=== PATIENT | female | born 1955 ===

== ENCOUNTER 2018-06-14 06:28 | Day surgery (SDC) | payer MEDICARE ==
--- NOTE | 2018-06-14 07:50 | CP.SDSHP ---
Same Day Surgery H & P - History Proposed Procedure: COLONSCOPY Pre-Op Diagnosis: SEE NOTES - Previous Medical/Surgical History Cardiac: Hypertension Endocrine/Metabolic: Other Misc: Other Pain: 4.Moderate Pain - Allergies Allergies: Allergies No Known Allergies Allergy (Verified 06/13/18 10:50) - Physical Exam General Appearance: N Vital Signs: Vital Signs 06/14/18 06:45 Temperature 98.2 F Pulse Rate 79 Respiratory 19 Rate Blood Pressure 146/92 H O2 Sat by Pulse 99 Oximetry Mental Status: Alert & Oriented x3 Neuro: WNL Heart: Other Lungs: WNL GI: Other - {Optional Preform as Required} Breast: WNL Abdomen: Other Rectal: Other Integument: WNL : WNL Ortho: WNL ENT: Other - Impression Pt. Evaluated Today:Candidate for Anesthesia & Procedure: Yes - Date & Time Time: 07:49 Short Stay Discharge - Short Stay Discharge Admitting Diagnosis/Reason for Visit: SCREENING Disposition: HOME/ ROUTINE
[2018-06-14] MEDS ORDERED: Lactated Ringer's 1,000 ML IV ONE (07:53)
[2018-06-14] MEDS ORDERED: Propofol 10 mg/ml Inj (20 ML) ONE (07:57)
[2018-06-14] MEDS ORDERED: Lidocaine Hydrochloride 5 ML INJ ONE (08:16)
[2018-06-14] MEDS ORDERED: Belladonna-Phenobarbital PO ONE (08:25)
[2018-06-14 09:36] VITALS: TEMP 98
[2018-06-14 09:38] VITALS: PULSE 68
[2018-06-14 09:40] VITALS: BP 119/70; RESP 18; O2SAT 99
== END 2018-06-14 09:30 | disposition home or self-care (01) ==
LOC: C.ENDO 06:28
PROVIDERS: ATTEND Specialist
DX: K57.30 Diverticulosis of large intestine without perforation or abscess without bleeding (principal); Z12.11 Encounter for screening for malignant neoplasm of colon; K64.8 Other hemorrhoids; I10 Essential (primary) hypertension
CPT/HCPCS: 45378; 88305; J2704; J7120

== ENCOUNTER 2018-07-07 09:07 | Outpatient (CLI) | payer MEDICARE | END 2018-07-07 09:08 | disposition home or self-care (01) | LOC: C.PAT 09:07 | DX: N20.0 Calculus of kidney (principal) ==

== ENCOUNTER 2018-07-11 11:03 | Day surgery (SDC) | payer MEDICARE ==
[2018-07-07 09:22] VITALS: BMI 23.0
[2018-07-11] MEDS ORDERED: Ciprofloxacin 400mg/200ml D5W 400 MG/200 ML BAG IVPB ONE ×2 (11:58→12:02)
[2018-07-11] MEDS ORDERED: Lidocaine 2% Jelly (Uro-Jet) ONE (11:58)
[2018-07-11] MEDS ORDERED: Iohexol 240 (50 ml) ONE (11:59)
[2018-07-11] MEDS ORDERED: Gentamicin 80 mg in 0.9% NS 160 MG/200 ML BAG IVPB ONE (12:02)
[2018-07-11] MEDS ORDERED: Propofol 10 mg/ml Inj (20 ML) ONE (12:11)
[2018-07-11] MEDS ORDERED: Midazolam 2 MG/2 ML VIAL ONE (12:11)
[2018-07-11] MEDS ORDERED: ePHEDrine 50 mg/ml Inj ONE (12:35)
[2018-07-11] MEDS ORDERED: Lidocaine Hydrochloride 5 ML INJ ONE (12:42)
--- NOTE | 2018-07-11 12:43 | PCM.SURG1 ---
Surgeon's Initial Post Op Note - Surgeon's Notes Surgeon: Jo Service Or Work Dispatcher Chief: JONELLE Type of Anesthesia: General LMA Anesthesia Administered By: staff Pre-Operative Diagnosis: Right UPJ calculi Operative Findings: same Post-Operative Diagnosis: same Operation Performed: Cysto stent insertion Specimen/Specimens Removed: na Estimated Blood Loss: EBL {In ML}: 0 Blood Products Given: N/A Drains Used: No Drains Post-Op Condition: Good Date of Surgery/Procedure: 07/11/18 Time of Surgery/Procedure: 12:42
--- NOTE | 2018-07-11 12:54 | RAD ---
Date of service: 2018-07-11 11:30:59 PROCEDURE: Intraoperative Fluoroscopy. HISTORY: RT RENAL CALCULI FINDINGS: Fluoroscopic assistance was provided Fluoroscopy time = 6.9 sec. Radiation dose = 0.93864 mGy-cm Limited please refer to the operative report from KENYA Lynn.
[2018-07-11] MEDS ORDERED: Lactated Ringer's 1,000 ML IV SCH (13:00)
[2018-07-11] MEDS ORDERED: HYDROmorphone 0.5 mg/0.5 ml ISec IVP PRN (13:01)
[2018-07-11 14:34] VITALS: BP 120/70; PULSE 71; RESP 18; TEMP 98; O2SAT 100
--- NOTE | 2018-07-19 16:40 | OP ---
PROCEDURE DATE: 07/11/2018 PREOPERATIVE DIAGNOSIS: Right ureteropelvic junction calculi. POSTOPERATIVE DIAGNOSIS: Right ureteropelvic junction calculi. PROCEDURE: Cystoscopy and insertion of double-J stent. DESCRIPTION OF PROCEDURE: As follows: Prior to the procedure, a detailed informed consent was obtained from the patient listing all risks, complications, and limitations of this procedure. The patient is aware that other procedures will be necessary. She signed the consent, accepted the risks and limitations, and was brought into the room. A time-out was taken according to the rules and regulations of [facility] and the patient received prophylactic antibiotics. She was anesthetized and draped and prepped in the usual manner. She was cystoscoped with a #21 Storz panendoscope and the bladder was inspected thoroughly. There was no evidence urothelial tumors or stones. There was clear efflux from both ureteral orifices. The right ureteral orifice was cannulized. A guidewire was passed up into the renal pelvis. The stone was noted next to the guidewire at the UPJ. It was elected to put a double J stent. A 6-Sami variable length stent was passed over the existing guidewire and deployed in proper position. The patient tolerated this well. She will be scheduled for ESWL at the next available date. She was made aware that she has a stent and needs to proceed with the ESWL. Delmer Osorio MD
== END 2018-07-11 15:57 | disposition home or self-care (01) ==
LOC: C.SDS 11:03
PROVIDERS: ATTEND Urology
DX: N20.0 Calculus of kidney (principal); N20.2 Calculus of kidney with calculus of ureter
CPT/HCPCS: 52332; C1725; C1758; C1769; J0744; J1580

== ENCOUNTER 2018-07-22 08:51 | Outpatient (CLI) | payer MEDICARE | END 2018-07-22 08:52 | disposition home or self-care (01) | LOC: C.RADH 08:51 ==

== ENCOUNTER 2018-08-08 12:22 | Outpatient (CLI) | payer MEDICAID | END 2018-08-08 12:23 | disposition home or self-care (01) | LOC: C.RADH 12:22 ==